=== PATIENT | female | born 1960 | race Caucasian/White ===

== ENCOUNTER → 2022-08-17 | Day surgery (SDC) | payer BC ==
[~2022-08-17] MED LIST: CENTRUM ADULTS1 EACH PO; ESTRADIOL1 MG PO; HYDROCHLOROTHIA25 MG; K-PHOS ORIGINA500 MG PO; LISINOPRIL10 MG PO; METOPROLOL TART50 MG PO; OR PHACO EYE KIT ONE; PREOP PHACO EYE KIT ONE
[2022-08-17 09:35] VITALS: BP 119/78
== END | disposition home or self-care (01) ==
LOC: OR 07:21
PROVIDERS: ATTEND Ophthalmology
DX: H25.12 Age-related nuclear cataract, left eye (principal); I10 Essential (primary) hypertension; R00.1 Bradycardia, unspecified; E78.5 Hyperlipidemia, unspecified; I44.0 Atrioventricular block, first degree; F41.9 Anxiety disorder, unspecified; Z79.899 Other long term (current) drug therapy; Z85.828 Personal history of other malignant neoplasm of skin
CPT/HCPCS: 66984; V2788

== ENCOUNTER → 2022-08-31 | Day surgery (SDC) | payer BC ==
[~2022-08-31] MED LIST changes: +CHEMO; +FENTANYL CITRATE/PF 100MCG/2 ML INJ ONE; +MIDAZOLAM HCL 2 MG/2 ML VIAL ONE; +ONDANSETRON HCL INJ 2MG/ML 2ML 2 MG/ML VIAL ONE
[2022-08-31 12:45] VITALS: BP 115/74
== END | disposition home or self-care (01) ==
LOC: OR 09:56
PROVIDERS: ATTEND Ophthalmology
DX: H25.11 Age-related nuclear cataract, right eye (principal); I10 Essential (primary) hypertension; I44.0 Atrioventricular block, first degree; R00.1 Bradycardia, unspecified; E78.5 Hyperlipidemia, unspecified; F41.9 Anxiety disorder, unspecified; Z79.899 Other long term (current) drug therapy
CPT/HCPCS: 66984; J2250; J2405; J3010; V2788